=== PATIENT | female | born 2000 ===

== ENCOUNTER 2020-03-24 07:13 | Inpatient (IN) ==
[2020-03-24] MEDS ORDERED: ONDANSETRON 4 MG/2 ML VIAL IV PRN (07:33)
[2020-03-24] MEDS ORDERED: BUTORPHANOL 2 MG/ML VIAL IV PRN (07:33)
[2020-03-24] MEDS ORDERED: MEPERIDINE 50 MG/1 ML VIAL IV PRN (07:33)
[2020-03-24] MEDS ORDERED: LACTATED RINGERS 1,000 ML IV SCH ×3 (08:00→11:30)
[2020-03-24] MEDS: OXYTOCIN/LR 20 UNIT/1,000 ML BAG IV SCH ×2 (08:16→19:17)
[2020-03-24 08:27] LABS: Basophils % 0.6 % (0.0-0.8); Eosinophils # 0.1 10*3/uL (0.0-0.87); Eosinophils % 1.4 % (0.00-10.9); Hematocrit 30.9 VOL% (35.7-47.0); Hemoglobin 10.1 GM/DL (12.0-16.0); Immature Granulocytes % 0.6 %; Immature Granulocytes Absolute 0.04 #; Lymphocytes # 1.8 10*3/uL (1.4-4.0); Lymphocytes % 24.3 % (21.3-54.2); Mean Corpuscular HGB Conc 32.7 GM/DL (32-36); Mean Corpuscular Volume 91.7 FL (87-102); Mean Platelet Volume 11.5 FL (9.6-12.0); Monocytes % 5.2 % (1.7-12.7); Neutrophils % 67.9 % (38.7-73.9); Platelet Count 256 T/CUMM (130-400); Red Blood Count 3.37 MC/CUMM (3.8-5.5); White Blood Count 7.2 T/CUMM (4-12)
[2020-03-24 08:48] LABS: Alanine Aminotransferase 14 U/L (13-56); Albumin 2.9 G/DL (3.4-5.0); Alkaline Phosphatase 194 U/L (45-117); Aspartate Amino Transferase 16 U/L (0-37); Bilirubin,Total < 0.39 MG/DL (0.2-1.0); Blood Urea Nitrogen 9 MG/DL (7-18); Calcium 9.1 MG/DL (8.5-10.1); Estimated Glom Filtration Rate 115 ML/MIN; Glucose 78 MG/DL (74-106); Osmolality,Calculated 270.8 MOS/KG (273-304)
[2020-03-24] MEDS ORDERED: ePHEDrine 50 MG/ML VIAL IV PRN (11:22)
[2020-03-24] MEDS ORDERED: FAMOTIDINE 20 MG/2 ML VIAL IV ONE (11:22)
[2020-03-24] MEDS ORDERED: CITRIC ACID/SODIUM CITRATE 30 ML UDCUP PO ONE (11:22)
[2020-03-24] MEDS ORDERED: LACTATED RINGERS 1,000 ML IV ONE (11:22)
[2020-03-24] MEDS ORDERED: NALOXONE 0.4 MG/ML VIAL IV PRN (11:23)
[2020-03-24] MEDS ORDERED: diphenhydrAMINE 50 MG/1 ML VIAL IV PRN ×2 (11:23)
[2020-03-24] MEDS ORDERED: PROMETHAZINE 25 MG/1 ML VIAL IM ONE (11:23)
[2020-03-24] MEDS ORDERED: hydrOXYzine HCL 25 MG/1 ML VIAL IM PRN (11:23)
[2020-03-24] MEDS ORDERED: fentaNYL 2 MCG/ROPIV 0.2% EPID 100 ML EPIDURAL SCH (11:30)
[2020-03-24 13:53] LABS: Bilirubin,Urine Negative (Negative); Blood, Urine Negative (Negative); Glucose,Urine (UA) Negative (Negative); Ketones,Urine Negative (Negative); Nitrite,Urine Negative (Negative); Protein,Urine Negative; Urine Appearance CLEAR (Clear); Urine Color Colorless (Yellow); Urine Specific Gravity 1.003 (1.001-1.035); Urine Urobilinogen < 2.0 EU/DL (0.2-1.0); WBC,Urine <1 /HPF (0-6)
[2020-03-24] MEDS ORDERED: miSOPROStoL 200 MCG TABLET ONE (14:33)
[2020-03-24] MEDS ORDERED: LIDOCAINE 1% 50 ML VIAL ONE (14:33)
[2020-03-24] MEDS ORDERED: METHYLERGONOVINE 0.2 MG/1 ML AMP ONE (14:34)
[2020-03-24 15:43] LABS: Cord Arterial Blood HCO3 17.4 MMOL/L
[2020-03-24 15:46] LABS: Cord Venous Blood HCO3 20.1 MMOL/L; Cord Venous Blood PCO2 46.7 MMHG; Cord Venous Blood PO2 32.2
[2020-03-24] MEDS ORDERED: LANOLIN 50% CREAM 0.3 OZ TUBE TOP PRN (20:21)
[2020-03-24] MEDS ORDERED: BISACODYL 10 MG SUPP RECTAL PRN (20:21)
[2020-03-24] MEDS ORDERED: DIPH/TET/ACEL PERT BOOSTER VACCINE 0.5 ML VIAL IM ONE (20:21)
[2020-03-24] MEDS ORDERED: ACETAMINOPHEN 325 MG TABLET PO PRN (20:21)
[2020-03-24] MEDS ORDERED: HYDROCORTISONE 2.5% RECTAL CREAM 30 GM TUBE TOP PRN (20:21)
[2020-03-24] MEDS ORDERED: RHO(D) IMMUNE GLOBULIN 300 MCG SYRINGE IM ONE (20:21)
[2020-03-24] MEDS ORDERED: WITCH HAZEL PADS 100/JAR TOP PRN (20:21)
[2020-03-24] MEDS ORDERED: BENZOCAINE 20%/MENTHOL 0.5% SPRAY 56 GM CAN TOP PRN (20:21)
[2020-03-24] MEDS ORDERED: OXYTOCIN/LR 20 UNIT/1,000 ML BAG IV ONE (20:21)
[2020-03-24] MEDS ORDERED: MEASLES/MUMPS/RUBELLA VACCINE 0.5 ML VIAL SUBCUT ONE (20:21)
[2020-03-24] MEDS ORDERED: oxyCODONE/ACETAMINOPHEN 5-325 MG TABLET PO PRN ×2 (20:21)
[2020-03-24] MEDS: IBUPROFEN 800 MG TABLET PO PRN (21:37)
[2020-03-24] MEDS: DOCUSATE SODIUM 100 MG CAPSULE PO SCH (21:38)
[2020-03-25 05:44] LABS: Basophils % 0.2 % (0.0-0.8); Eosinophils # 0.1 10*3/uL (0.0-0.87); Eosinophils % 0.7 % (0.00-10.9); Hematocrit 26.5 VOL% (35.7-47.0); Hemoglobin 8.7 GM/DL (12.0-16.0); Immature Granulocytes % 0.5 %; Immature Granulocytes Absolute 0.06 #; Lymphocytes # 1.9 10*3/uL (1.4-4.0); Lymphocytes % 15.8 % (21.3-54.2); Mean Corpuscular HGB Conc 32.8 GM/DL (32-36); Mean Corpuscular Volume 91.7 FL (87-102); Mean Platelet Volume 11.8 FL (9.6-12.0); Monocytes % 6.4 % (1.7-12.7); Neutrophils % 76.4 % (38.7-73.9); Platelet Count 210 T/CUMM (130-400); Red Blood Count 2.89 MC/CUMM (3.8-5.5); Red Cell Distribution Width 13.1 % (9.3-17.3); White Blood Count 12.1 T/CUMM (4-12)
[2020-03-25] MEDS: DOCUSATE SODIUM 100 MG CAPSULE PO SCH ×2 (09:27→21:29)
[2020-03-26] MEDS: IBUPROFEN 800 MG TABLET PO PRN (01:01)
[2020-03-26 08:42] VITALS: BP 121/77
[2020-03-26] MEDS: DOCUSATE SODIUM 100 MG CAPSULE PO SCH (09:53)
== END 2020-03-26 12:05 | disposition home or self-care (01) | DRG 560 ==
LOC: N.LDOUT 07:13 → N.LD 07:14 → N.OB 20:35
PROVIDERS: ADMIT Obstetrics & Gynecology; ATTEND Obstetrics & Gynecology

== ENCOUNTER 2022-02-09 05:38 | Inpatient (IN) ==
[2022-02-09] MEDS ORDERED: LACTATED RINGERS 250 ML IV ONE (05:48)
[2022-02-09] MEDS ORDERED: TRANEXAMIC ACID 1,000 MG in SODIUM CHLORIDE 0.9% 100 ML IV PRN (05:48)
[2022-02-09] MEDS ORDERED: CARBOPROST TROMETHAMINE 250 MCG/ML AMP IM PRN (05:48)
[2022-02-09] MEDS ORDERED: ONDANSETRON 4 MG/2 ML VIAL IV PRN (05:48)
[2022-02-09] MEDS ORDERED: OXYTOCIN/LR 20 UNIT/1,000 ML BAG IV ONE ×2 (05:48→15:46)
[2022-02-09] MEDS ORDERED: ACETAMINOPHEN 325 MG TABLET PO PRN ×2 (05:48→15:46)
[2022-02-09] MEDS ORDERED: BUTORPHANOL 1 MG/ML VIAL IV PRN (05:48)
[2022-02-09] MEDS ORDERED: METHYLERGONOVINE 0.2 MG/1 ML AMP IM PRN (05:48)
[2022-02-09] MEDS ORDERED: LACTATED RINGERS 500 ML IV PRN (05:48)
[2022-02-09] MEDS ORDERED: BUTORPHANOL 2 MG/ML VIAL IV PRN (05:48)
[2022-02-09] MEDS ORDERED: miSOPROStoL 200 MCG TABLET RECTAL PRN (05:48)
[2022-02-09] MEDS ORDERED: OXYTOCIN/LR 20 UNIT/1,000 ML BAG IV SCH (06:00)
[2022-02-09] MEDS ORDERED: LACTATED RINGERS 1,000 ML IV SCH (06:00)
[2022-02-09 06:45] LABS: Basophils # 0.1 10*3/uL (0.0-0.2); Basophils % 0.5 % (0.0-0.8); Eosinophils # 0.1 10*3/uL (0.0-0.87); Eosinophils % 0.9 % (0.00-10.9); Hematocrit 33.3 VOL% (35.7-47.0); Immature Granulocytes % 0.5 %; Immature Granulocytes Absolute 0.05 #; Lymphocytes # 1.7 10*3/uL (1.4-4.0); Lymphocytes % 17.1 % (21.3-54.2); Mean Corpuscular HGB Conc 29.7 GM/DL (32-36); Mean Corpuscular Volume 88.1 FL (87-102); Mean Platelet Volume 10.4 FL (9.6-12.0); Monocytes # 0.5 10*3/uL (0.11-0.8); Monocytes % 4.7 % (1.7-12.7); Neutrophils % 76.3 % (38.7-73.9); Platelet Count 361 T/CUMM (130-400); Red Blood Count 3.78 MC/CUMM (3.8-5.5); Red Cell Distribution Width 14.3 % (9.3-17.3)
[2022-02-09 06:50] LABS: Hemoglobin 9.9 GM/DL (12.0-16.0)
[2022-02-09] MEDS ORDERED: FAMOTIDINE 20 MG/2 ML VIAL IV ONE (07:06)
[2022-02-09] MEDS ORDERED: ePHEDrine 50 MG/ML VIAL IV PRN (07:06)
[2022-02-09] MEDS ORDERED: CITRIC ACID/SODIUM CITRATE 30 ML UDCUP PO ONE (07:06)
[2022-02-09] MEDS ORDERED: OXYTOCIN/LR 30 UNIT/1,000 ML BAG IV ONE (07:06)
[2022-02-09] MEDS ORDERED: NALOXONE 0.4 MG/ML VIAL IV PRN (07:06)
[2022-02-09] MEDS ORDERED: fentaNYL 2 MCG/ROPIV 0.2% EPID 100 ML EPIDURAL SCH (07:30)
[2022-02-09 08:33] LABS: Mucus,Urine Many /LPF (Occasional); RBC,Urine 287 /HPF (0-4); Squamous Epithelial Cell,Urine Occasional /HPF (0-10)
[2022-02-09 08:35] LABS: Bilirubin,Urine Negative (Negative); Blood, Urine Large mg/dL (Negative); Glucose,Urine (UA) Negative (Negative); Ketones,Urine Negative (Negative); Nitrite,Urine Negative (Negative); Protein,Urine 30 mg/dL (Negative); Urine Appearance Clear (Clear); Urine Color Yellow (Yellow); Urine Specific Gravity > 1.030 (1.001-1.035); Urine pH 6.5 (4.5-8.0)
[2022-02-09] MEDS ORDERED: SODIUM CHLORIDE 0.9% 0 ML IV ONE (10:51)
[2022-02-09 12:23] LABS: Cord Arterial Blood HCO3 21.7 MMOL/L
[2022-02-09 12:25] LABS: Cord Venous Blood HCO3 22.2 MMOL/L; Cord Venous Blood PCO2 45.2 MMHG; Cord Venous Blood PO2 32.8
[2022-02-09] MEDS ORDERED: ACETAMINOPHEN 500 MG TABLET PO ONE (12:41)
[2022-02-09] MEDS ORDERED: DIPH/TET/ACEL PERT BOOSTER VACCINE 0.5 ML VIAL IM ONE (15:46)
[2022-02-09] MEDS ORDERED: LANOLIN 50% CREAM 0.3 OZ TUBE TOP PRN (15:46)
[2022-02-09] MEDS ORDERED: WITCH HAZEL PADS 100/JAR TOP PRN (15:46)
[2022-02-09] MEDS ORDERED: oxyCODONE/ACETAMINOPHEN 5-325 MG TABLET PO PRN ×2 (15:46)
[2022-02-09] MEDS ORDERED: MEASLES/MUMPS/RUBELLA VACCINE 0.5 ML VIAL SUBCUT ONE (15:46)
[2022-02-09] MEDS ORDERED: BISACODYL 10 MG SUPP RECTAL PRN (15:46)
[2022-02-09] MEDS ORDERED: BENZOCAINE 20%/MENTHOL 0.5% SPRAY 56 GM CAN TOP PRN (15:46)
[2022-02-09] MEDS ORDERED: HYDROCORTISONE 2.5% RECTAL CREAM 30 GM TUBE TOP PRN (15:46)
[2022-02-09] MEDS ORDERED: RHO(D) IMMUNE GLOBULIN 300 MCG SYRINGE IM ONE (15:46)
[2022-02-09] MEDS: IBUPROFEN 800 MG TABLET PO PRN (19:41)
[2022-02-09] MEDS: DOCUSATE SODIUM 100 MG CAPSULE PO SCH (21:48)
[2022-02-10 05:26] LABS: Basophils % 0.3 % (0.0-0.8); Eosinophils # 0.1 10*3/uL (0.0-0.87); Eosinophils % 1.1 % (0.00-10.9); Hematocrit 27.7 VOL% (35.7-47.0); Hemoglobin 8.4 GM/DL (12.0-16.0); Immature Granulocytes % 0.7 %; Immature Granulocytes Absolute 0.08 #; Lymphocytes # 2.4 10*3/uL (1.4-4.0); Lymphocytes % 19.7 % (21.3-54.2); Mean Corpuscular HGB Conc 30.3 GM/DL (32-36); Mean Corpuscular Volume 86.3 FL (87-102); Mean Platelet Volume 10.7 FL (9.6-12.0); Monocytes # 0.7 10*3/uL (0.11-0.8); Monocytes % 5.6 % (1.7-12.7); Neutrophils % 72.6 % (38.7-73.9); Platelet Count 278 T/CUMM (130-400); Red Blood Count 3.21 MC/CUMM (3.8-5.5); Red Cell Distribution Width 14.3 % (9.3-17.3)
[2022-02-10] MEDS: IBUPROFEN 800 MG TABLET PO PRN ×3 (05:44→23:57)
[2022-02-10] MEDS: DOCUSATE SODIUM 100 MG CAPSULE PO SCH ×2 (08:35→20:56)
[2022-02-10] MEDS: MULTIVITAMIN (PRENATAL) TABLET PO SCH (08:35)
[2022-02-10] MEDS: FERROUS SULFATE 325 MG TABLET PO SCH ×2 (08:36→20:56)
[2022-02-11 08:59] VITALS: BP 104/59
[2022-02-11] MEDS: MULTIVITAMIN (PRENATAL) TABLET PO SCH (12:27)
[2022-02-11] MEDS: FERROUS SULFATE 325 MG TABLET PO SCH (12:27)
[2022-02-11] MEDS: DOCUSATE SODIUM 100 MG CAPSULE PO SCH (12:27)
== END 2022-02-11 13:35 | disposition home or self-care (01) | DRG 560 ==
LOC: N.LD 05:38 → N.OB 14:33
PROVIDERS: ADMIT Obstetrics & Gynecology; ATTEND Obstetrics & Gynecology